=== PATIENT | male | born 1950 ===

== ENCOUNTER 2018-10-05 10:47 | Inpatient (IN) | payer MEDICAID ==
[2018-10-05] MEDS ORDERED: Sodium Chloride 0.9% 1,000 ML IV STA (11:40)
--- NOTE | 2018-10-05 12:29 | ED PDOC ---
HPI: Abdomen Time Seen by Provider: 10/05/18 11:13 Chief Complaint (Nursing): Abdominal Pain Chief Complaint (Provider): Abdominal Pain History Per: Patient, Balance Truer (Jose Workman) History/Exam Limitations: clinical condition Associated Symptoms: Vomiting Additional History Per: Longterm Additional Complaint(s): 68 year old male with a past medical history of diabetes, HTN, and hypercholesterolemia, who presents to the emergency department after being sent [facility] for hematem[facility]. Patient is shown to be A&O x1 and is here also complaining of lower abdominal pain. PMD: no provider Past Medical History Reviewed: Historical Data, Nursing Documentation, Vital Signs Vital Signs: Last Vital Signs Temp 97.9 F 10/05/18 10:53 Pulse 106 H 10/05/18 10:53 Resp 18 10/05/18 10:53 BP 143/89 10/05/18 10:53 Pulse Ox 98 10/05/18 10:57 - Medical History PMH: Diabetes, HTN, Hypercholesterolemia Denies: Deep Vein Thrombosis, Chronic Kidney Disease - Surgical History Surgical History: Denies: Pacemaker - Family History Family History: States: Unknown Family Hx - Home Medications Home Medications: Ambulatory Orders Medication Instructions Recorded Digoxin 0.125 mg PO DAILY #30 tab 09/22/18 Lisinopril [Zestril] 20 mg PO DAILY #30 tab 09/22/18 Metoprolol Tartrate [Lopressor] 100 mg PO Q12 #60 tab 09/22/18 Pantoprazole [Protonix EC Tab] 40 mg PO DAILY #30 ect 09/22/18 metFORMIN [glucOPHAGE] 500 mg PO DAILYWM #30 tab 09/22/18 Acetaminophen [Tylenol 325mg tab] 650 mg PO Q4 PRN 10/05/18 Acetaminophen [Tylenol 325mg tab] 650 mg PO Q4 PRN 10/05/18 Atorvastatin [Lipitor] 20 mg PO HS 10/05/18 Baclofen [Lioresal] 5 mg PO Q8 10/05/18 Divalproex [Depakote DR TAB] 125 mg PO Q8 10/05/18 Ibuprofen [Motrin Tab] 600 mg PO Q8 PRN 10/05/18 Lactulose [Generlac] 30 ml PO QPM 10/05/18 Magnesium Hydroxide [Milk Of 30 ml PO DAILY PRN 10/05/18 Magnesia] Meloxicam [Mobic] 7.5 mg PO DAILY 10/05/18 - Allergies Allergies/Adverse Reactions: Allergies Allergy/AdvReac Type Severity Reaction Status Date / Time Unobtainable Allergy Verified 04/03/18 17:10 Review of Systems ROS Statement: Except As Marked, All Systems Reviewed And Found Negative Gastrointestinal: Positive for: Abdominal Pain, Other (hematemesis ) Physical Exam - Reviewed Nursing Documentation Reviewed: Yes Vital Signs Reviewed: Yes - Physical Exam Appears: Positive for: Non-toxic, No Acute Distress Head Exam: Positive for: ATRAUMATIC, NORMOCEPHALIC Skin: Positive for: Normal Color, Warm, Dry Eye Exam: Positive for: Normal appearance, EOMI, PERRL ENT: Positive for: Normal ENT Inspection Neck: Positive for: Normal, Painless ROM, Supple Cardiovascular/Chest: Positive for: Regular Rate, Rhythm. Negative for: Murmur Respiratory: Positive for: Normal Breath Sounds. Negative for: Respiratory Distress Gastrointestinal/Abdominal: Positive for: Normal Exam, Soft. Negative for: Tenderness Back: Positive for: Normal Inspection. Negative for: L CVA Tenderness, R CVA Tenderness, Vertebral Tenderness Extremity: Positive for: Other (left upper extremity is contracted ) Neurologic/Psych: Positive for: Alert, Oriented - Laboratory Results Result Diagrams: 10/05/18 13:00 10/05/18 13:00 - ECG Interpretation Of ECG: ST @ 107, TWI I, aVL (new compared to 04/03/18). O2 Sat by Pulse Oximetry: 98 (RA) Pulse Ox Interpretation: Normal Medical Decision Making Medical Decision Makin Impression: upper GI bleed Plan: --Type and screen --Ekg --Cmp --Urine dipstick --Cbc with differential --PTT --Urinalysis --Chest xray --Sodium chloride 1,000 ml --Zofran inj 4 mg IV --Protonix inj 40 mg IVP 1236 Chest xray FINDINGS: LUNGS: No evidence of focal infiltrate or consolidation in the lungs. PLEURA: No significant pleural effusion identified, no pneumothorax apparent. CARDIOVASCULAR: No aortic atherosclerotic calcification present. Normal cardiac size. No pulmonary vascular congestion. OSSEOUS STRUCTURES: No significant abnormalities. VISUALIZED UPPER ABDOMEN: Normal. OTHER FINDINGS: None. IMPRESSION: No evidence of focal consolidation or infiltrates in the lungs. Scribe Attestation: Documented by Richardson Segura, acting as a scribe for Rafia Em MD. Provider Scribe Attestation: All medical record entries made by the Scribe were at my direction and personally dictated by me. I have reviewed the chart and agree that the record accurately reflects my personal performance of the history, physical exam, medical decision making, and the department course for this patient. I have also personally directed, reviewed, and agree with the discharge instructions and disposition. Disposition - Disposition Forms: [employer] ([place])
--- NOTE | 2018-10-05 12:39 | RAD ---
Date of service: 10/05/2018 HISTORY: GIB COMPARISON: Comparison is made with 07/28/2018 FINDINGS: LUNGS: No evidence of focal infiltrate or consolidation in the lungs. PLEURA: No significant pleural effusion identified, no pneumothorax apparent. CARDIOVASCULAR: No aortic atherosclerotic calcification present. Normal cardiac size. No pulmonary vascular congestion. OSSEOUS STRUCTURES: No significant abnormalities. VISUALIZED UPPER ABDOMEN: Normal. OTHER FINDINGS: None. IMPRESSION: No evidence of focal consolidation or infiltrates in the lungs.
--- NOTE | 2018-10-05 12:40 | CARD ---
APPROVED REPORT Date of service: 10/05/2018 EKG Measurement Heart [id number] <Conclusion> Sinus tachycardia Left axis deviation Inferior infarct, age undetermined ST & T wave abnormality, consider lateral ischemia Abnormal ECG
[2018-10-05 13:18] LABS: BASO # 0.1 K/uL (0.0-0.2); BASO % 0.5 % (0.0-2.0); EOS % 0.1 % (0.0-4.0); HEMOGLOBIN 12.5 g/dL (12.0-18.0); LYMPH # 1.9 K/uL (1.0-4.3); MEAN CELL VOLUME 89.1 fl (80.0-94.0); MEAN CORPUSCULAR HGB CONC 32.6 g/dL (33.0-37.0); MEAN PLATELET VOLUME 8.7 fl (7.2-11.7); MONO # 0.6 K/uL (0.0-0.8); MONO % 3.8 % (0.0-10.0); NEUT % 82.6 % (50.0-75.0); NRBC % 0.1 % (0.0-0.0); RBC 4.3 Mil/uL (4.40-5.90); RED CELL DISTRIBUTION WIDTH 15.5 % (11.5-14.5); WHITE BLOOD COUNT 14.5 K/uL (4.8-10.8)
[2018-10-05 13:31] LABS: ALBUMIN 3.9 g/dL (3.5-5.0); ALT/SGPT 21 U/L (21-72); AST/SGOT 31 U/L (17-59); BLOOD UREA NITROGEN 28 mg/dl (9-20); CALCIUM 9.8 mg/dL (8.4-10.2); GFR NON-AFRICAN AMERICAN > 60
[2018-10-05] MEDS ORDERED: Iohexol 240 (50 ml) PO ONE (16:55)
[2018-10-05] MEDS ORDERED: Iohexol 240 (50 ml) ONE (17:15)
--- NOTE | 2018-10-05 18:40 | RAD ---
Date of service: 10/05/2018 HISTORY: UGIB COMPARISON: None available. FINDINGS: BOWEL: Constipation without fecal impaction or obstruction. BONES: Normal. OTHER FINDINGS: None. IMPRESSION: No acute findings related to/ accounting for the clinical presentation. No visible free air.
[2018-10-05] MEDS ORDERED: Magnesium Hydroxide Susp 30 ml UD PO PRN (23:58)
[2018-10-06] MEDS: Divalproex 125 mg DR (BID formulation) PO SCH ×3 (01:53→16:45)
--- NOTE | 2018-10-06 06:57 | CON ---
DATE: 10/05/2018 REFERRING DOCTOR: Kashmir Yates MD REASON FOR CONSULTATION: hematemesis. HISTORY OF PRESENT ILLNESS: This is a 68-year-old male with diabetes, hypertension, hypercholesterolemia, brought in for episode of hematemesis . He is a poor historian and has some discomfort upon my exam, but otherwise I can get history. PAST MEDICAL HISTORY: As per chart. PAST SURGICAL HISTORY: As above. MEDICATIONS: Reviewed. REVIEW OF SYSTEMS: All other systems have been obtained. PHYSICAL EXAMINATION: VITAL SIGNS: Here in the hospital are grossly unremarkable. GENERAL: A pleasant elderly appearing male, lying in bed comfortably, in no apparent distress. HEENT: Head, normocephalic and atraumatic. Eyes, pupils are equally reactive to light bilaterally. No conjunctival pallor or icterus. NECK: Supple. Normal range of motion. No lymphadenopathy appreciated. LUNGS: Coarse breath sounds bilaterally. HEART: S1 and S2. Regular rate and rhythm. No S3. ABDOMEN: Soft, distended. Bowel sounds are present. Some discomfort. No rebound. No guarding. RECTAL: Deferred. EXTREMITIES: Pulses felt bilaterally. SKIN: Warm, dry, and intact. NEUROLOGIC: Alert and oriented x1 to 2. LABORATORY DATA: Labs and radiology have been reviewed. WBC of 14.5, hemoglobin of 12.5, hematocrit 38.3, and platelet count is . LFTs are normal. ASSESSMENT AND PLAN: This is a 68-year-old male with hematemesis, gastrointestinal bleeding. We will plan for CAT scan once able to tolerate. We will follow up the patient with you. Thank you for the consult. Ghassan Diallo MD/ PhD cc: Kashmir Yates MD
--- NOTE | 2018-10-06 08:33 | CP.PCM.HP ---
<Tenisha Ortiz - Last Filed: 10/06/18 08:55> History of Present Illness - History of Present Illness History of Present Illness: HPI: 68 YO Male with PMHx of DM2, CVA, HTN and HLD presented to [facility] ED [facility]. Pt was send to ED after patient was found to have "bloody emesis" additionally in the ED patient endorsed vague abdominal pain. On last admission to [facility], pt also was noted to have UGI bleed, unknown source resolved. This AM, pt no longer has any abdominal pain and no more episodes of hematemesis since admission. PMHx: DM2, CVA, HTN and HLD SurgHx: catarect surgery SHx: denies ETOH, smoking and illicit drug use FHx: noncontrubitary Allergies: NKDA Present on Admission - Present on Admission Any Indicators Present on Admission: No Review of Systems - Cardiovascular Cardiovascular: absent: Chest Pain, Dyspnea - Respiratory Respiratory: absent: Cough, Dyspnea - Gastrointestinal Gastrointestinal: Hematemesis. absent: Abdominal Pain, Cramping, Diarrhea Past Patient History - Past Medical History & Family History Past Medical History?: Yes - Past Social History Smoking Status: Never Smoked Alcohol: None Drugs: Denies Home Situation {Lives}: Group Home - CARDIAC Hx Cardiac Disorders: Yes Hx Hypercholesterolemia: Yes - PULMONARY Hx Respiratory Disorders: Yes Hx Pneumonia: Yes - NEUROLOGICAL Hx Neurological Disorder: Yes - HEENT Hx HEENT Problems: Yes Other/Comment: surgical procedure on left eye some years ago - RENAL Hx Chronic Kidney Disease: No - ENDOCRINE/METABOLIC Hx Endocrine Disorders: Yes Hx Diabetes Mellitus Type 2: Yes - HEMATOLOGICAL/ONCOLOGICAL Hx Blood Disorders: No Hx Cancer: No - INTEGUMENTARY Hx Dermatological Problems: No - MUSCULOSKELETAL/RHEUMATOLOGICAL Hx Musculoskeletal Disorders: Yes Hx Falls: Yes - GASTROINTESTINAL Hx Gastrointestinal Disorders: Yes Hx Bowel Surgery: No Hx Gastroesophageal Reflux: Yes - GENITOURINARY/GYNECOLOGICAL Hx Genitourinary Disorders: No - PSYCHIATRIC Hx Psychophysiologic Disorder: No Hx Substance Use: No - SURGICAL HISTORY Hx Surgeries: Yes (L eye) Hx Mastectomy: No - ANESTHESIA Hx Anesthesia: Yes Hx Anesthesia Reactions: No Meds Allergies/Adverse Reactions: Allergies Allergy/AdvReac Type Severity Reaction Status Date / Time Unobtainable Allergy Verified 04/03/18 17:10 Physical Exam - Constitutional Appears: No Acute Distress - Head Exam Head Exam: NORMAL INSPECTION - ENT Exam ENT Exam: Mucous Membranes Moist - Respiratory Exam Respiratory Exam: Clear to Auscultation Bilateral, NORMAL BREATHING PATTERN. absent: Wheezes - Cardiovascular Exam Cardiovascular Exam: Tachycardia, Irregular Rhythm, +S1, +S2 - GI/Abdominal Exam GI & Abdominal Exam: Hyperactive Bowel Sounds, Soft. absent: Guarding, Tenderness Results - Vital Signs Recent Vital Signs: Last Vital Signs Temp 98.1 F 10/06/18 08:26 Pulse 103 H 10/06/18 08:26 Resp 18 10/06/18 08:26 BP 145/86 10/06/18 08:26 Pulse Ox 94 L 10/06/18 08:26 - Labs Result Diagrams: 10/05/18 13:00 10/05/18 13:00 Labs: Laboratory Results - last 24 hr 10/05/18 10/05/18 10/05/18 13:00 13:00 13:00 WBC 14.5 H D RBC 4.30 L Hgb 12.5 Hct 38.3 MCV 89.1 D MCH 29.0 MCHC 32.6 L RDW 15.5 H Plt Count 267 MPV 8.7 Neut % (Auto) 82.6 H Lymph % (Auto) 13.0 L Phillips % (Auto) 3.8 Eos % (Auto) 0.1 Baso % (Auto) 0.5 Neut # (Auto) 12.0 H Lymph # (Auto) 1.9 Phillips # (Auto) 0.6 Eos # (Auto) 0.0 Baso # (Auto) 0.1 APTT 30.4 Sodium Potassium Chloride Carbon Dioxide Anion Gap BUN Creatinine Est GFR ( Amer) Est GFR (Non-Af Amer) POC Glucose (mg/dL) Random Glucose Calcium Total Bilirubin AST ALT Alkaline Phosphatase Troponin I Total Protein Albumin Globulin Albumin/Globulin Ratio Blood Type O POSITIVE Antibody Screen Negative BBK History Checked Patient has bt 10/05/18 10/05/18 10/06/18 13:00 22:16 06:20 WBC RBC Hgb Hct MCV MCH MCHC RDW Plt Count MPV Neut % (Auto) Lymph % (Auto) Phillips % (Auto) Eos % (Auto) Baso % (Auto) Neut # (Auto) Lymph # (Auto) Phillips # (Auto) Eos # (Auto) Baso # (Auto) APTT Sodium 131 L Potassium 5.0 Chloride 93 L Carbon Dioxide 25 Anion Gap 18 BUN 28 H Creatinine 0.5 L Est GFR ( Amer) > 60 Est GFR (Non-Af Amer) > 60 POC Glucose (mg/dL) 153 H 136 H Random Glucose 220 H Calcium 9.8 Total Bilirubin 0.5 AST 31 ALT 21 D Alkaline Phosphatase 85 Troponin I < 0.0120 Total Protein 7.9 Albumin 3.9 Globulin 4.0 H Albumin/Globulin Ratio 1.0 Blood Type Antibody Screen BBK History Checked Assessment & Plan - Assessment and Plan (Free Text) Assessment: Assessment/Plan: 68 YO Male with PMHx of DM2, CVA, HTN and HLD is admitted for UGIB. Upper GI bleed -acute -Not currently actively bleeding -c/w protonix -GI consulted: CT abd when tolerated -follow up FOBT -h/t currently stable ST changed on EKG -acute -Echo 03/2018 appreciated, no ventricular dysfunction, EF 55-60% -cardiology consulted; follow up recs -trop x 1 neg -echo pending Atrial Fib with RVR -HR uncontrolled -continue Digoxin and Metoprolol -follow up cardiology recs Leukocystosis -likely 2/2 to hemoconcentration -no known source of infection, VS stable -follow up AM labs Hypertension/HLD -chronic and stable -continue Lisinopril and Metoprolol NIDDM -chronic and controlled -hbA1c 6.4 (07/2018) -c/w Accucheks, Levemir at night and Metformin Plan as ordered <Kashmir Yates - Last Filed: 10/08/18 11:52> Results - Vital Signs Recent Vital Signs: Last Vital Signs Temp 98.0 F 10/08/18 08:43 Pulse 83 10/08/18 09:39 Resp 20 10/08/18 08:43 BP 126/81 10/08/18 09:39 Pulse Ox 99 10/08/18 08:43 - Labs Result Diagrams: 10/08/18 05:35 10/08/18 05:35 Labs: Laboratory Results - last 24 hr 10/07/18 10/07/18 10/08/18 16:26 22:24 05:35 WBC 8.7 RBC 3.63 L Hgb 10.6 L Hct 32.2 L MCV 88.7 MCH 29.2 MCHC 32.9 L RDW 15.2 H Plt Count 237 MPV 8.5 Neut % (Auto) 65.6 Lymph % (Auto) 21.7 Phillips % (Auto) 11.0 H Eos % (Auto) 1.0 Baso % (Auto) 0.7 Neut # (Auto) 5.7 Lymph # (Auto) 1.9 Phillips # (Auto) 1.0 H Eos # (Auto) 0.1 Baso # (Auto) 0.1 Sodium Potassium Chloride Carbon Dioxide Anion Gap BUN Creatinine Est GFR ( Amer) Est GFR (Non-Af Amer) POC Glucose (mg/dL) 159 H 193 H Random Glucose Calcium Phosphorus Magnesium Total Bilirubin AST ALT Alkaline Phosphatase Total Protein Albumin Globulin Albumin/Globulin Ratio 10/08/18 10/08/18 10/08/18 05:35 05:37 11:01 WBC RBC Hgb Hct MCV MCH MCHC RDW Plt Count MPV Neut % (Auto) Lymph % (Auto) Phillips % (Auto) Eos % (Auto) Baso % (Auto) Neut # (Auto) Lymph # (Auto) Phillips # (Auto) Eos # (Auto) Baso # (Auto) Sodium 134 Potassium 3.8 Chloride 102 Carbon Dioxide 21 L Anion Gap 15 BUN 13 Creatinine 0.4 L Est GFR ( Amer) > 60 Est GFR (Non-Af Amer) > 60 POC Glucose (mg/dL) 205 H 219 H Random Glucose 209 H Calcium 8.8 Phosphorus 2.8 Magnesium 1.5 L Total Bilirubin 0.3 AST 25 ALT 27 Alkaline Phosphatase 69 Total Protein 6.8 Albumin 3.1 L Globulin 3.6 Albumin/Globulin Ratio 0.9 L Assessment & Plan - Assessment and Plan (Free Text) Assessment: Patient was personally seen and examined by me in rounds with residents. Available labs and diagnostic data reviewed. Case, Patient's condition and management plan discussed with residents in rounds. Agree with resident's progress note. Plan: As ordered.
[2018-10-06] MEDS: Digoxin 125 mcg (0.125 mg) Tab PO SCH (08:45)
[2018-10-06] MEDS: Pantoprazole 40 mg EC Tab PO SCH (08:45)
[2018-10-06 09:44] LABS: HEMOGLOBIN 11.3 g/dL (12.0-18.0); MEAN CELL VOLUME 89.1 fl (80.0-94.0); MEAN CORPUSCULAR HEMOGLOBIN 29.1 pg (27.0-31.0); MEAN CORPUSCULAR HGB CONC 32.6 g/dL (33.0-37.0); RBC 3.9 Mil/uL (4.40-5.90); RED CELL DISTRIBUTION WIDTH 15.4 % (11.5-14.5); WHITE BLOOD COUNT 13.2 K/uL (4.8-10.8)
[2018-10-06 09:57] LABS: ALB/GLOB RATIO 0.9 (1.0-2.1); ALBUMIN 3.4 g/dL (3.5-5.0); ALT/SGPT 23 U/L (21-72); AST/SGOT 22 U/L (17-59); BLOOD UREA NITROGEN 21 mg/dl (9-20); CALCIUM 9.1 mg/dL (8.4-10.2); GFR NON-AFRICAN AMERICAN > 60
[2018-10-06] MEDS ORDERED: Iohexol 240 (50 ml) PO ONE (11:31)
[2018-10-06] MEDS: Potassium Ch 20mEq in D5-1/2NS 1,000 ML IV SCH ×2 (11:35→21:13)
[2018-10-06] MEDS ORDERED: Metoprolol 1 mg/ml Inj IVP SCH (17:00)
[2018-10-06] MEDS: Digoxin 500 mcg/2ml (0.5 mg/2ml) Inj IVP SCH (17:16)
--- NOTE | 2018-10-06 18:21 | CARD ---
APPROVED REPORT Date of service: 10/06/2018 EXAM: Two-dimensional and M-mode echocardiogram with Doppler and color Doppler. Other Information Quality : FairRhythm : Atrial Fibrillation Technically limited study due to Very poor echo window. INDICATION Atrial Fibrillation 2D DIMENSIONS IVSd1.10 (0.7-1.1cm)LVDd3.93 (3.9-5.9cm) PWd1.17 (0.7-1.1cm)IVSs1.09 (0.8-1.2cm) LVDs3.98 (2.5-4.0cm)FS (%) 1.3 % PWs0.93 (0.8-1.2cm) Mitral Valve E/A ratio0.0 TDI E/Lateral E'0.0E/Medial E'0.0 LEFT VENTRICLE The left ventricle is normal size. There is normal left ventricular wall thickness. The left ventricular systolic function is moderately reduced. Cannot estimate EF% due to poor echo windows. There is global hypokinesis of the left ventricle. The left ventricular diastolic function cannot be assessed due to underlying atrial fibrillation. RIGHT VENTRICLE The right ventricle is normal size. The right ventricular systolic function is normal. ATRIA The left atrium size is normal. The right atrium size is normal. Not well visualized AORTIC VALVE The aortic valve is not well visualized No aortic regurgitation is present. There is no aortic valvular stenosis. MITRAL VALVE The mitral valve is normal in structure. There is no mitral valve stenosis. There is no mitral valve regurgitation noted. TRICUSPID VALVE The tricuspid valve is normal in structure. There is no tricuspid valve regurgitation noted. PULMONIC VALVE The pulmonary valve is not well visualized There is no pulmonic valvular regurgitation. GREAT VESSELS The aortic root is normal in size. The IVC is not visualized PERICARDIAL EFFUSION There is no pericardial effusion. <Conclusion> Technically difficult study and patient was not co-operative for contrast study to delineate endocardium. The left ventricular systolic function is moderately reduced. There is global hypokinesis of the left ventricle. Cannot estimate EF% due to poor echo windows. The left ventricular diastolic function cannot be assessed due to underlying atrial fibrillation. The left atrium size is normal. There is no tricuspid valve regurgitation noted. The IVC is not visualized Consider repeating echo when heart rate is better controlled and patient is co-operative.
--- NOTE | 2018-10-07 00:11 | CP.PCM.CON ---
History of Present Illness - History of Present Illness History of Present Illness: Consultation for evaluation of abnormal EKG and ? afib HPI: 68M w/ PMH DM, HTN, CVA, Dyslipidemia Recently discharged on 09/22 after prolonged admission starting in March for severe R frontal lobe CVA during which patient remained under care of hospital due to social/legal reasons. During prior course patient developed GI bleed. Patient presented to [facility] ED on 10/05 from alf w/ new onset episode of hemetemsis; EKG upon admission - patient was noted to have ST segment changes as well as possible atrial fibrillation. Patient tachycardic and hypertensive following admission. Upon evaluation patient is examined w/ privacy specialist; patient is found to be AAOx1; no meaningful history provided by patient upon evaluation. At time of evaluation patient denies CP, SOB, Palpitations, Lightheadedness, Abd Pain, N/v/d/c. Prior Echo 03/2018 - EF 55-60%; NSR; Grade 1 abnormal relxation patter - Mild AR, Moderate MR, Mild TR Echo 10/06/18 - Poor study overall; EF unable to be assessed, global hypokinesis, possible underlying afib. Per Chart Review: PMHx: DM2, CVA, HTN and HLD SurgHx: catarect surgery SHx: denies ETOH, smoking and illicit drug use FHx: noncontrubitary Allergies: NKDA Review of Systems - Review of Systems Systems not reviewed;Unavailable: Acuity of Condition - Constitutional Constitutional: As Per HPI - EENT Eyes: As Per HPI Ears: As Per HPI Nose/Mouth/Throat: As Per HPI - Cardiovascular Cardiovascular: As Per HPI - Respiratory Respiratory: As Per HPI - Gastrointestinal Gastrointestinal: As Per HPI - Genitourinary Genitourinary: As Per HPI - Reproductive: Male Reproductive:Male: As Per HPI - Musculoskeletal Musculoskeletal: As Per HPI - Integumentary Integumentary: As Per HPI - Neurological Neurological: As Per HPI - Psychiatric Psychiatric: As Per HPI - Endocrine Endocrine: As Per HPI - Hematologic/Lymphatic Hematologic: As Per HPI Past Patient History - Past Medical History & Family History Past Medical History?: Yes - Past Social History Smoking Status: Never Smoked Alcohol: None Drugs: Denies Home Situation {Lives}: Half-Way - CARDIAC Hx Cardiac Disorders: Yes Hx Hypercholesterolemia: Yes - PULMONARY Hx Respiratory Disorders: Yes Hx Pneumonia: Yes - NEUROLOGICAL Hx Neurological Disorder: Yes - HEENT Hx HEENT Problems: Yes Other/Comment: surgical procedure on left eye some years ago - RENAL Hx Chronic Kidney Disease: No - ENDOCRINE/METABOLIC Hx Endocrine Disorders: Yes Hx Diabetes Mellitus Type 2: Yes - HEMATOLOGICAL/ONCOLOGICAL Hx Blood Disorders: No Hx Cancer: No - INTEGUMENTARY Hx Dermatological Problems: No - MUSCULOSKELETAL/RHEUMATOLOGICAL Hx Musculoskeletal Disorders: Yes Hx Falls: Yes - GASTROINTESTINAL Hx Gastrointestinal Disorders: Yes Hx Bowel Surgery: No Hx Gastroesophageal Reflux: Yes - GENITOURINARY/GYNECOLOGICAL Hx Genitourinary Disorders: No - PSYCHIATRIC Hx Psychophysiologic Disorder: No Hx Substance Use: No - SURGICAL HISTORY Hx Surgeries: Yes (L eye) Hx Mastectomy: No - ANESTHESIA Hx Anesthesia: Yes Hx Anesthesia Reactions: No Meds Allergies/Adverse Reactions: Allergies Allergy/AdvReac Type Severity Reaction Status Date / Time Unobtainable Allergy Verified 04/03/18 17:10 - Medications Medications: Current Medications Acetaminophen (Tylenol 325mg Tab) 650 mg PO Q4 PRN PRN Reason: Pain, Mild (1-3) Acetaminophen (Tylenol 325mg Tab) 650 mg PO Q4 PRN PRN Reason: Temp >100 Atorvastatin Calcium (Lipitor) 20 mg PO HS [facility] Last Admin: 10/06/18 21:13 Dose: Not Given Baclofen (Lioresal) 5 mg PO Q8 [facility] Last Admin: 10/06/18 16:44 Dose: Not Given Digoxin (Digoxin) 0.125 mg PO DAILY [facility] Last Admin: 10/06/18 08:45 Dose: Not Given Digoxin (Lanoxin) 0.25 mg IVP DAILY [facility] Last Admin: 10/06/18 17:16 Dose: 0.25 mg Divalproex Sodium (Depakote Dr(*Bid*)) 125 mg PO Q8 [facility] Last Admin: 10/06/18 16:45 Dose: Not Given Enoxaparin Sodium (Lovenox) 40 mg SC DAILY [facility]; Protocol Potassium Chloride/Dextrose/Sod Cl (Potassium Chl 20 Meq In D5-1/2ns) 1,000 mls @ 90 mls/hr IV .Q11H7M [facility] Stop: 10/07/18 08:31 Last Admin: 10/06/18 21:13 Dose: 90 mls/hr Ibuprofen (Motrin Tab) 600 mg PO Q8 PRN PRN Reason: Pain, moderate (4-7) Lactulose (Enulose) 20 gm PO DAILY PRN PRN Reason: Constipation Lisinopril (Zestril) 20 mg PO DAILY [facility] Last Admin: 10/06/18 08:45 Dose: Not Given Magnesium Hydroxide (Milk Of Magnesia) 30 ml PO DAILY PRN PRN Reason: No bowel movement x 3 days Metformin HCl (Glucophage) 500 mg PO DAILYWM [facility] Last Admin: 10/06/18 08:45 Dose: Not Given Metoprolol Tartrate (Lopressor) 100 mg PO Q12 [facility] Last Admin: 10/06/18 08:45 Dose: Not Given Metoprolol Tartrate (Lopressor) 5 mg IVP BID [facility] Last Admin: 10/06/18 17:20 Dose: 5 mg Naproxen (Naprosyn Tab) 250 mg PO BID [facility] Pantoprazole Sodium (Protonix Ec Tab) 40 mg PO DAILY [facility] Last Admin: 10/06/18 08:45 Dose: Not Given Physical Exam - Constitutional Appears: Well - Head Exam Head Exam: ATRAUMATIC, NORMAL INSPECTION, NORMOCEPHALIC - Eye Exam Eye Exam: EOMI, Normal appearance, PERRL Pupil Exam: NORMAL ACCOMODATION, PERRL - ENT Exam ENT Exam: Mucous Membranes Moist, Normal Exam - Neck Exam Neck exam: Positive for: Normal Inspection - Respiratory Exam Respiratory Exam: Clear to Auscultation Bilateral, NORMAL BREATHING PATTERN - Cardiovascular Exam Cardiovascular Exam: REGULAR RHYTHM, RRR, +S1, +S2, Systolic Murmur - GI/Abdominal Exam GI & Abdominal Exam: Normal Bowel Sounds, Soft. absent: Tenderness - Extremities Exam Extremities exam: Positive for: normal inspection - Back Exam Back exam: NORMAL INSPECTION - Neurological Exam Neurological exam: Alert, CN II-XII Intact, Normal Gait, Oriented x3, Reflexes Normal - Psychiatric Exam Psychiatric exam: Normal Affect, Normal Mood - Skin Skin Exam: Dry, Intact, Normal Color, Warm Results - Vital Signs Recent Vital Signs: Last Vital Signs Temp 98 F 10/06/18 21:00 Pulse 116 H 10/06/18 21:00 Resp 18 10/06/18 21:00 BP 139/81 10/06/18 21:00 Pulse Ox 96 10/06/18 21:00 - Labs Result Diagrams: 10/07/18 04:40 10/07/18 04:40 Labs: Laboratory Results - last 24 hr 10/05/18 10/06/18 10/06/18 22:16 06:20 09:00 WBC RBC Hgb Hct MCV MCH MCHC RDW Plt Count Sodium Potassium Chloride Carbon Dioxide Anion Gap BUN Creatinine Est GFR ( Amer) Est GFR (Non-Af Amer) POC Glucose (mg/dL) 153 H 136 H Random Glucose Calcium Total Bilirubin AST ALT Alkaline Phosphatase Troponin I 0.0280 Total Protein Albumin Globulin Albumin/Globulin Ratio 10/06/18 10/06/18 10/06/18 09:35 09:35 11:19 WBC 13.2 H RBC 3.90 L Hgb 11.3 L Hct 34.7 L MCV 89.1 MCH 29.1 MCHC 32.6 L RDW 15.4 H Plt Count 254 Sodium 137 Potassium 4.3 Chloride 100 Carbon Dioxide 22 Anion Gap 19 BUN 21 H Creatinine 0.5 L Est GFR ( Amer) > 60 Est GFR (Non-Af Amer) > 60 POC Glucose (mg/dL) 131 H Random Glucose 146 H Calcium 9.1 Total Bilirubin 0.4 AST 22 ALT 23 Alkaline Phosphatase 73 Troponin I Total Protein 7.1 Albumin 3.4 L Globulin 3.7 Albumin/Globulin Ratio 0.9 L 10/06/18 10/06/18 10/06/18 16:07 20:49 21:41 WBC RBC Hgb Hct MCV MCH MCHC RDW Plt Count Sodium Potassium Chloride Carbon Dioxide Anion Gap BUN Creatinine Est GFR ( Amer) Est GFR (Non-Af Amer) POC Glucose (mg/dL) 202 H 206 H Random Glucose Calcium Total Bilirubin AST ALT Alkaline Phosphatase Troponin I 0.0420 Total Protein Albumin Globulin Albumin/Globulin Ratio Assessment & Plan (1) Abnormal EKG Assessment and Plan: ? ST changes in lateral wall because of hx of CVA , high risk for underlying CAD plan for stress test echo -poor images to comment on WMA asa, bb, statins Status: Acute (2) Afib Assessment and Plan: none documented on EKG and on telemetry cont home dose of metoprolol 100mg bid Status: Acute (3) Anemia Status: Acute (4) CVA (cerebral vascular accident) Status: Chronic (5) DM type 2 (diabetes mellitus, type 2) Status: Chronic (6) HTN (hypertension) Assessment and Plan: cont lisinopril, metoprolol Status: Chronic
--- NOTE | 2018-10-07 00:51 | CP.PCM.PN ---
Subjective - Date & Time of Evaluation Date of Evaluation: 10/07/18 Time of Evaluation: 02:50 - Subjective Subjective: Jeffrey Hester DO PGY1 - Internal medicine Mechanical Facilities Technician - Cardiology Note for Dr. Madrigal Patient was seen and examined at bedside this morning Patient was tachycardic throughout the day today. Required Objective - Vital Signs/Intake and Output Vital Signs (last 24 hours): Temp Pulse Resp BP Pulse Ox 98 F 116 H 18 139/81 96 10/06/18 21:00 10/06/18 21:00 10/06/18 21:00 10/06/18 21:00 10/06/18 21:00 - Medications Medications: Current Medications Acetaminophen (Tylenol 325mg Tab) 650 mg PO Q4 PRN PRN Reason: Pain, Mild (1-3) Acetaminophen (Tylenol 325mg Tab) 650 mg PO Q4 PRN PRN Reason: Temp >100 Atorvastatin Calcium (Lipitor) 20 mg PO HS [facility] Last Admin: 10/06/18 21:13 Dose: Not Given Baclofen (Lioresal) 5 mg PO Q8 [facility] Last Admin: 10/06/18 16:44 Dose: Not Given Digoxin (Digoxin) 0.125 mg PO DAILY [facility] Last Admin: 10/06/18 08:45 Dose: Not Given Digoxin (Lanoxin) 0.25 mg IVP DAILY [facility] Last Admin: 10/06/18 17:16 Dose: 0.25 mg Divalproex Sodium (Depakote Dr(*Bid*)) 125 mg PO Q8 [facility] Last Admin: 10/06/18 16:45 Dose: Not Given Enoxaparin Sodium (Lovenox) 40 mg SC DAILY [facility]; Protocol Potassium Chloride/Dextrose/Sod Cl (Potassium Chl 20 Meq In D5-1/2ns) 1,000 mls @ 90 mls/hr IV .Q11H7M [facility] Stop: 10/07/18 08:31 Last Admin: 10/06/18 21:13 Dose: 90 mls/hr Ibuprofen (Motrin Tab) 600 mg PO Q8 PRN PRN Reason: Pain, moderate (4-7) Lactulose (Enulose) 20 gm PO DAILY PRN PRN Reason: Constipation Lisinopril (Zestril) 20 mg PO DAILY [facility] Last Admin: 10/06/18 08:45 Dose: Not Given Magnesium Hydroxide (Milk Of Magnesia) 30 ml PO DAILY PRN PRN Reason: No bowel movement x 3 days Metformin HCl (Glucophage) 500 mg PO DAILYWM [facility] Last Admin: 10/06/18 08:45 Dose: Not Given Metoprolol Tartrate (Lopressor) 100 mg PO Q12 [facility] Last Admin: 10/06/18 08:45 Dose: Not Given Metoprolol Tartrate (Lopressor) 5 mg IVP BID [facility] Last Admin: 10/06/18 17:20 Dose: 5 mg Naproxen (Naprosyn Tab) 250 mg PO BID [facility] Pantoprazole Sodium (Protonix Ec Tab) 40 mg PO DAILY [facility] Last Admin: 10/06/18 08:45 Dose: Not Given - Labs Labs: 10/06/18 09:35 10/06/18 09:35 APTT 30.4 Seconds (25.6-37.1) 10/05/18 13:00 - Constitutional Appears: Chronically Ill, Other (Contracted) - Head Exam Head Exam: ATRAUMATIC, NORMOCEPHALIC - Eye Exam Additional comments: L pupil dilated non reactive R pupil reactive to light - Cardiovascular Exam Cardiovascular Exam: RRR, +S1, +S2 - GI/Abdominal Exam GI & Abdominal Exam: Soft. absent: Tenderness - Extremities Exam Additional comments: LE warm 1+ DP BL - Neurological Exam Neurological Exam: Alert, Awake Additional comments: LUE+LLE contracted - Psychiatric Exam Psychiatric exam: Normal Affect, Normal Mood - Skin Skin Exam: Dry, Intact, Normal Color, Warm Assessment and Plan (1) Afib Status: Suspected (2) HTN (hypertension) Status: Chronic (3) CVA (cerebral vascular accident) Status: Chronic (4) DM type 2 (diabetes mellitus, type 2) Status: Chronic - Assessment and Plan (Free Text) Plan: Patient unable to complete NST 2/2 contractures; V4/V5 w/ ST Depressions appreciated; No evidence of Afib on EKG or overnight telemetry Due to chronic contractures, NST evaluation is not feasible. Can continue to medically manage patient at this time. Evaluation w/ coronary catheterization is not warranted at this time due to asymptomatic presentation. Resuming Home PO: Digoxin 0.125 Toprol XL 100 QD Stopping IV: Lopressor Digoxin Start ASA81 QD Continue: Lipitor 20 HS Zestril 20 Daily Further reccs per Dr. Madrigal pending
[2018-10-07] MEDS: Divalproex 125 mg DR (BID formulation) PO SCH ×3 (00:54→22:13)
[2018-10-07 05:27] LABS: BASO % 0.5 % (0.0-2.0); EOS # 0.1 K/uL (0.0-0.7); EOS % 0.6 % (0.0-4.0); HEMOGLOBIN 10.9 g/dL (12.0-18.0); INR 1.2; LYMPH # 1.9 K/uL (1.0-4.3); MEAN CELL VOLUME 88.9 fl (80.0-94.0); MEAN CORPUSCULAR HEMOGLOBIN 29.1 pg (27.0-31.0); MEAN CORPUSCULAR HGB CONC 32.8 g/dL (33.0-37.0); MEAN PLATELET VOLUME 8.4 fl (7.2-11.7); MONO # 0.8 K/uL (0.0-0.8); MONO % 8.4 % (0.0-10.0); NEUT # 6.8 K/uL (1.8-7.0); NEUT % 70.5 % (50.0-75.0); PROTHROMBIN TIME 13.5 Seconds (9.8-13.1); RBC 3.73 Mil/uL (4.40-5.90); RED CELL DISTRIBUTION WIDTH 15.7 % (11.5-14.5); WHITE BLOOD COUNT 9.7 K/uL (4.8-10.8)
[2018-10-07 05:36] LABS: ALB/GLOB RATIO 0.9 (1.0-2.1); ALBUMIN 3.5 g/dL (3.5-5.0); ALT/SGPT 23 U/L (21-72); AST/SGOT 28 U/L (17-59); BLOOD UREA NITROGEN 18 mg/dl (9-20); CALCIUM 9.2 mg/dL (8.4-10.2); GFR NON-AFRICAN AMERICAN > 60
[2018-10-07] MEDS: Potassium Ch 20mEq in D5-1/2NS 1,000 ML IV SCH (06:51)
[2018-10-07] MEDS ORDERED: Potassium Ch 20mEq in D5-1/2NS 1,000 ML IV SCH ×2 (08:30→23:59)
[2018-10-07] MEDS ORDERED: Digoxin 500 mcg/2ml (0.5 mg/2ml) Inj IVP SCH ×2 (08:39→16:45)
--- NOTE | 2018-10-07 08:44 | CP.PCM.PN ---
<Tenisha Ortiz - Last Filed: 10/07/18 08:49> Subjective - Date & Time of Evaluation Date of Evaluation: 10/07/18 Time of Evaluation: 08:42 - Subjective Subjective: No acute overnight events. Pt refused PO contrast yesterday Pt seen and examined by bedside this AM. Pt states that he does not feel well, but does not elaborate when asked. Denies headache, chest pain, palpitations, abdominal pain, n/v, chills, and remains afebrile. Objective - Vital Signs/Intake and Output Vital Signs (last 24 hours): Temp Pulse Resp BP Pulse Ox 98 F 124 H 18 144/74 97 10/07/18 01:00 10/07/18 01:00 10/07/18 01:00 10/07/18 01:00 10/07/18 01:00 - Medications Medications: Current Medications Acetaminophen (Tylenol 325mg Tab) 650 mg PO Q4 PRN PRN Reason: Pain, Mild (1-3) Acetaminophen (Tylenol 325mg Tab) 650 mg PO Q4 PRN PRN Reason: Temp >100 Atorvastatin Calcium (Lipitor) 20 mg PO HS [facility] Last Admin: 10/06/18 21:13 Dose: Not Given Baclofen (Lioresal) 5 mg PO Q8 [facility] Last Admin: 10/07/18 00:54 Dose: Not Given Digoxin (Digoxin) 0.125 mg PO DAILY [facility] Last Admin: 10/06/18 08:45 Dose: Not Given Digoxin (Lanoxin) 0.25 mg IVP DAILY [facility] Stop: 10/07/18 09:00 Last Admin: 10/06/18 17:16 Dose: 0.25 mg Digoxin (Lanoxin) 0.25 mg IVP DAILY [facility] Divalproex Sodium (Depakote Dr(*Bid*)) 125 mg PO Q8 [facility] Last Admin: 10/07/18 00:54 Dose: Not Given Enoxaparin Sodium (Lovenox) 40 mg SC DAILY [facility]; Protocol Potassium Chloride/Dextrose/Sod Cl (Potassium Chl 20 Meq In D5-1/2ns) 1,000 mls @ 90 mls/hr IV .Q11H7M [facility] Stop: 10/07/18 19:36 Ibuprofen (Motrin Tab) 600 mg PO Q8 PRN PRN Reason: Pain, moderate (4-7) Lactulose (Enulose) 20 gm PO DAILY PRN PRN Reason: Constipation Lisinopril (Zestril) 20 mg PO DAILY [facility] Last Admin: 10/06/18 08:45 Dose: Not Given Magnesium Hydroxide (Milk Of Magnesia) 30 ml PO DAILY PRN PRN Reason: No bowel movement x 3 days Metformin HCl (Glucophage) 500 mg PO DAILYWM [facility] Last Admin: 10/06/18 08:45 Dose: Not Given Metoprolol Tartrate (Lopressor) 100 mg PO Q12 [facility] Last Admin: 10/06/18 08:45 Dose: Not Given Metoprolol Tartrate (Lopressor) 5 mg IVP Q8 [facility] Naproxen (Naprosyn Tab) 250 mg PO BID [facility] Pantoprazole Sodium (Protonix Ec Tab) 40 mg PO DAILY [facility] Last Admin: 10/06/18 08:45 Dose: Not Given - Labs Labs: 10/07/18 04:40 10/07/18 04:40 PT 13.5 Seconds (9.8-13.1) H 10/07/18 04:40 INR 1.2 10/07/18 04:40 APTT 29.0 Seconds (25.6-37.1) 10/07/18 04:40 - Constitutional Appears: No Acute Distress - Head Exam Head Exam: NORMAL INSPECTION - Respiratory Exam Respiratory Exam: Clear to Ausculation Bilateral, NORMAL BREATHING PATTERN. absent: Wheezes - Cardiovascular Exam Cardiovascular Exam: REGULAR RHYTHM, +S1, +S2 - GI/Abdominal Exam GI & Abdominal Exam: Soft, Normal Bowel Sounds. absent: Tenderness - Neurological Exam Neurological Exam: Alert, Awake Assessment and Plan (1) Hematemesis Status: Acute (2) Afib Status: Suspected (3) DM type 2 (diabetes mellitus, type 2) Status: Chronic (4) HTN (hypertension) Status: Chronic (5) Anemia Status: Acute - Assessment and Plan (Free Text) Assessment: Assessment/Plan: 68 YO Male with PMHx of DM2, CVA, HTN and HLD is admitted for UGIB. Upper GI bleed -acute -Not currently actively bleeding -c/w protonix -GI consulted: CT abd when tolerated -follow up FOBT -h/t currently stable ST changed on EKG -acute, likely 2/2 to arrhythmia -Echo 03/2018 appreciated, no ventricular dysfunction, EF 55-60% -cardiology consulted; follow up recs -trop x 3 neg -echo 10/06 global hypokinesis, poor study Atrial Fib with RVR -HR uncontrolled -continue Digoxin, PO metropolol held -started IV lopressor Q8 for rate control -cardiology appreciated, npo at [place] for NST in AM Anemia -hb 12-->10 today -likely 2.2 to hematemesis -asymptomatic -continue to monitor for now Leukocystosis -resolved -likely 2/2 to hemoconcentration -no known source of infection, VS stable Hypertension/HLD -chronic and stable -continue Lisinopril and Metoprolol NIDDM -chronic and controlled -hbA1c 6.4 (07/2018) -c/w Accucheks, Levemir at night and Metformin Plan as ordered <Kashmir Yates - Last Filed: 10/08/18 11:49> Objective - Vital Signs/Intake and Output Vital Signs (last 24 hours): Temp Pulse Resp BP Pulse Ox 98.0 F 83 20 126/81 99 10/08/18 08:43 10/08/18 09:39 10/08/18 08:43 10/08/18 09:39 10/08/18 08:43 - Medications Medications: Current Medications Acetaminophen (Tylenol 325mg Tab) 650 mg PO Q4 PRN PRN Reason: Pain, Mild (1-3) Acetaminophen (Tylenol 325mg Tab) 650 mg PO Q4 PRN PRN Reason: Temp >100 Atorvastatin Calcium (Lipitor) 20 mg PO HS [facility] Last Admin: 10/07/18 22:13 Dose: 20 mg Baclofen (Lioresal) 5 mg PO Q8 [facility] Last Admin: 10/08/18 09:37 Dose: 5 mg Digoxin (Digoxin) 0.125 mg PO DAILY [facility] Last Admin: 10/08/18 09:35 Dose: 0.125 mg Divalproex Sodium (Depakote Dr(*Bid*)) 125 mg PO Q8 [facility] Last Admin: 10/08/18 09:35 Dose: 125 mg Enoxaparin Sodium (Lovenox) 40 mg SC DAILY [facility]; Protocol Last Admin: 10/08/18 09:38 Dose: 40 mg Potassium Chloride/Dextrose/Sod Cl (Potassium Chl 20 Meq In D5-1/2ns) 1,000 mls @ 90 mls/hr IV .Q11H7M [facility] Stop: 10/08/18 15:45 Last Admin: 10/07/18 00:00 Dose: 90 mls/hr Ibuprofen (Motrin Tab) 600 mg PO Q8 PRN PRN Reason: Pain, moderate (4-7) Lactulose (Enulose) 20 gm PO DAILY [facility] Last Admin: 10/08/18 09:36 Dose: 20 gm Lisinopril (Zestril) 20 mg PO DAILY [facility] Last Admin: 10/08/18 09:39 Dose: 20 mg Magnesium Hydroxide (Milk Of Magnesia) 30 ml PO DAILY PRN PRN Reason: No bowel movement x 3 days Metformin HCl (Glucophage) 500 mg PO DAILYWM [facility] Last Admin: 10/08/18 09:36 Dose: 500 mg Metoprolol Tartrate (Lopressor) 100 mg PO Q12 [facility] Last Admin: 10/08/18 09:37 Dose: 100 mg Naproxen (Naprosyn Tab) 250 mg PO BID [facility] Pantoprazole Sodium (Protonix Ec Tab) 40 mg PO DAILY [facility] Last Admin: 10/08/18 09:38 Dose: 40 mg - Labs Labs: 10/08/18 05:35 10/08/18 05:35 PT 13.5 Seconds (9.8-13.1) H 10/07/18 04:40 INR 1.2 10/07/18 04:40 APTT 29.0 Seconds (25.6-37.1) 10/07/18 04:40 Assessment and Plan - Assessment and Plan (Free Text) Assessment: Patient was personally seen and examined by me in rounds with residents. Available labs and diagnostic data reviewed. Case, Patient's condition and management plan discussed with residents in rounds. Agree with resident's progress note. Plan: As ordered.
[2018-10-07] MEDS: Metoprolol 1 mg/ml Inj IVP SCH ×3 (08:54→17:09)
[2018-10-07] MEDS: Enoxaparin 40 mg Syringe SC SCH (09:32)
[2018-10-07] MEDS: Pantoprazole 40 mg EC Tab PO SCH (09:33)
--- NOTE | 2018-10-07 11:07 | CARD ---
APPROVED REPORT Date of service: 10/07/2018 EKG Measurement Heart [id number] <Conclusion> Sinus tachycardia Left axis deviation Septal infarct, age undetermined Inferior infarct, age undetermined Nonspecific ST-T changes Abnormal ECG
[2018-10-07] MEDS: Digoxin 500 mcg/2ml (0.5 mg/2ml) Inj IVP SCH (11:59)
[2018-10-08] MEDS: Divalproex 125 mg DR (BID formulation) PO SCH ×3 (01:33→09:35)
[2018-10-08 06:16] LABS: BASO # 0.1 K/uL (0.0-0.2); BASO % 0.7 % (0.0-2.0); EOS # 0.1 K/uL (0.0-0.7); HEMOGLOBIN 10.6 g/dL (12.0-18.0); LYMPH # 1.9 K/uL (1.0-4.3); LYMPH % 21.7 % (20.0-40.0); MEAN CELL VOLUME 88.7 fl (80.0-94.0); MEAN CORPUSCULAR HEMOGLOBIN 29.2 pg (27.0-31.0); MEAN CORPUSCULAR HGB CONC 32.9 g/dL (33.0-37.0); MEAN PLATELET VOLUME 8.5 fl (7.2-11.7); NEUT # 5.7 K/uL (1.8-7.0); NEUT % 65.6 % (50.0-75.0); NRBC % 0.1 % (0.0-0.0); RBC 3.63 Mil/uL (4.40-5.90); RED CELL DISTRIBUTION WIDTH 15.2 % (11.5-14.5); WHITE BLOOD COUNT 8.7 K/uL (4.8-10.8)
[2018-10-08 06:55] LABS: ALB/GLOB RATIO 0.9 (1.0-2.1); ALBUMIN 3.1 g/dL (3.5-5.0); ALT/SGPT 27 U/L (21-72); AST/SGOT 25 U/L (17-59); BLOOD UREA NITROGEN 13 mg/dl (9-20); CALCIUM 8.8 mg/dL (8.4-10.2); GFR NON-AFRICAN AMERICAN > 60
--- NOTE | 2018-10-08 07:44 | CP.PCM.PN ---
<Tenisha Ortiz - Last Filed: 10/08/18 08:50> Subjective - Date & Time of Evaluation Date of Evaluation: 10/08/18 Time of Evaluation: 07:44 - Subjective Subjective: No acute overnight events. Pt was tachycardic, up to 130's, meds were adjusted HR this AM 80's. Pt has no new c/o this AM. Denies chest pain, abdominal pain. Tolerated PO diet yesterday. Objective - Vital Signs/Intake and Output Vital Signs (last 24 hours): Temp Pulse Resp BP Pulse Ox 97.9 F 76 20 134/80 98 10/08/18 05:00 10/08/18 05:00 10/08/18 05:00 10/08/18 05:00 10/08/18 05:00 - Medications Medications: Current Medications Acetaminophen (Tylenol 325mg Tab) 650 mg PO Q4 PRN PRN Reason: Pain, Mild (1-3) Acetaminophen (Tylenol 325mg Tab) 650 mg PO Q4 PRN PRN Reason: Temp >100 Atorvastatin Calcium (Lipitor) 20 mg PO HS [facility] Last Admin: 10/07/18 22:13 Dose: 20 mg Baclofen (Lioresal) 5 mg PO Q8 [facility] Last Admin: 10/08/18 01:57 Dose: Not Given Digoxin (Digoxin) 0.125 mg PO DAILY [facility] Last Admin: 10/06/18 08:45 Dose: Not Given Divalproex Sodium (Depakote Dr(*Bid*)) 125 mg PO Q8 [facility] Last Admin: 10/08/18 01:56 Dose: Not Given Enoxaparin Sodium (Lovenox) 40 mg SC DAILY [facility]; Protocol Last Admin: 10/07/18 09:32 Dose: 40 mg Potassium Chloride/Dextrose/Sod Cl (Potassium Chl 20 Meq In D5-1/2ns) 1,000 mls @ 90 mls/hr IV .Q11H7M [facility] Stop: 10/08/18 15:45 Last Admin: 10/07/18 00:00 Dose: 90 mls/hr Ibuprofen (Motrin Tab) 600 mg PO Q8 PRN PRN Reason: Pain, moderate (4-7) Lactulose (Enulose) 20 gm PO DAILY [facility] Last Admin: 10/07/18 17:07 Dose: 20 gm Lisinopril (Zestril) 20 mg PO DAILY [facility] Last Admin: 10/07/18 09:33 Dose: Not Given Magnesium Hydroxide (Milk Of Magnesia) 30 ml PO DAILY PRN PRN Reason: No bowel movement x 3 days Metformin HCl (Glucophage) 500 mg PO DAILYWM [facility] Last Admin: 10/07/18 09:30 Dose: Not Given Metoprolol Tartrate (Lopressor) 100 mg PO Q12 [facility] Last Admin: 10/07/18 22:13 Dose: 100 mg Naproxen (Naprosyn Tab) 250 mg PO BID [facility] Pantoprazole Sodium (Protonix Ec Tab) 40 mg PO DAILY [facility] Last Admin: 10/07/18 09:33 Dose: Not Given - Labs Labs: 10/08/18 05:35 10/08/18 05:35 PT 13.5 Seconds (9.8-13.1) H 10/07/18 04:40 INR 1.2 10/07/18 04:40 APTT 29.0 Seconds (25.6-37.1) 10/07/18 04:40 - Constitutional Appears: No Acute Distress - ENT Exam ENT Exam: Mucous Membranes Moist - Respiratory Exam Respiratory Exam: Clear to Ausculation Bilateral, NORMAL BREATHING PATTERN. absent: Wheezes - Cardiovascular Exam Cardiovascular Exam: REGULAR RHYTHM, +S1, +S2 - GI/Abdominal Exam GI & Abdominal Exam: Soft, Normal Bowel Sounds. absent: Tenderness - Extremities Exam Additional comments: lower ext contracted Assessment and Plan (1) Hematemesis Status: Acute (2) Afib Status: Suspected (3) DM type 2 (diabetes mellitus, type 2) Status: Chronic (4) HTN (hypertension) Status: Chronic (5) Anemia Status: Acute - Assessment and Plan (Free Text) Assessment: Assessment/Plan: 68 YO Male with PMHx of DM2, CVA, HTN and HLD is admitted for UGIB. ST changed on EKG -acute, likely 2/2 to arrhythmia, [place] r/o -trop x 3 neg -Echo 03/2018 appreciated, no ventricular dysfunction, EF 55-60% -echo 09/2018 global hypokinesis, poor study -cardiology consulted; pharmacological perfusion test Atrial Fib with RVR -EKG with no a fib noted -sinus tachycardia on monitor -continue Digoxin, PO metropolol as per cardio Upper GI bleed -acute, resolved -c/w protonix -GI consulted: CT abd when tolerated, stable -follow up FOBT -h/t currently stable Anemia -acute, stable -likely 2/2 to hematemesis -asymptomatic -continue to monitor for now Hypertension/HLD -chronic and stable -continue Lisinopril and Metoprolol NIDDM -chronic and controlled -hbA1c 6.4 (07/2018) -c/w Accucheks, Levemir at night and Metformin Plan as ordered <Kashmir Yates - Last Filed: 10/08/18 11:48> Objective - Vital Signs/Intake and Output Vital Signs (last 24 hours): Temp Pulse Resp BP Pulse Ox 98.0 F 83 20 126/81 99 10/08/18 08:43 10/08/18 09:39 10/08/18 08:43 10/08/18 09:39 10/08/18 08:43 - Medications Medications: Current Medications Acetaminophen (Tylenol 325mg Tab) 650 mg PO Q4 PRN PRN Reason: Pain, Mild (1-3) Acetaminophen (Tylenol 325mg Tab) 650 mg PO Q4 PRN PRN Reason: Temp >100 Atorvastatin Calcium (Lipitor) 20 mg PO HS [facility] Last Admin: 10/07/18 22:13 Dose: 20 mg Baclofen (Lioresal) 5 mg PO Q8 [facility] Last Admin: 10/08/18 09:37 Dose: 5 mg Digoxin (Digoxin) 0.125 mg PO DAILY [facility] Last Admin: 10/08/18 09:35 Dose: 0.125 mg Divalproex Sodium (Depakote Dr(*Bid*)) 125 mg PO Q8 [facility] Last Admin: 10/08/18 09:35 Dose: 125 mg Enoxaparin Sodium (Lovenox) 40 mg SC DAILY [facility]; Protocol Last Admin: 10/08/18 09:38 Dose: 40 mg Potassium Chloride/Dextrose/Sod Cl (Potassium Chl 20 Meq In D5-1/2ns) 1,000 mls @ 90 mls/hr IV .Q11H7M [facility] Stop: 10/08/18 15:45 Last Admin: 10/07/18 00:00 Dose: 90 mls/hr Ibuprofen (Motrin Tab) 600 mg PO Q8 PRN PRN Reason: Pain, moderate (4-7) Lactulose (Enulose) 20 gm PO DAILY [facility] Last Admin: 10/08/18 09:36 Dose: 20 gm Lisinopril (Zestril) 20 mg PO DAILY [facility] Last Admin: 10/08/18 09:39 Dose: 20 mg Magnesium Hydroxide (Milk Of Magnesia) 30 ml PO DAILY PRN PRN Reason: No bowel movement x 3 days Metformin HCl (Glucophage) 500 mg PO DAILYWM [facility] Last Admin: 10/08/18 09:36 Dose: 500 mg Metoprolol Tartrate (Lopressor) 100 mg PO Q12 [facility] Last Admin: 10/08/18 09:37 Dose: 100 mg Naproxen (Naprosyn Tab) 250 mg PO BID [facility] Pantoprazole Sodium (Protonix Ec Tab) 40 mg PO DAILY [facility] Last Admin: 10/08/18 09:38 Dose: 40 mg - Labs Labs: 10/08/18 05:35 10/08/18 05:35 PT 13.5 Seconds (9.8-13.1) H 10/07/18 04:40 INR 1.2 10/07/18 04:40 APTT 29.0 Seconds (25.6-37.1) 10/07/18 04:40 Assessment and Plan - Assessment and Plan (Free Text) Assessment: Patient was personally seen and examined by me in rounds with residents. Available labs and diagnostic data reviewed. Case, Patient's condition and management plan discussed with residents in rounds. Agree with resident's progress note. Plan: As ordered.
[2018-10-08 08:44] VITALS: O2SAT 99
[2018-10-08] MEDS: Digoxin 125 mcg (0.125 mg) Tab PO SCH (09:35)
[2018-10-08] MEDS: Enoxaparin 40 mg Syringe SC SCH (09:38)
[2018-10-08] MEDS: Pantoprazole 40 mg EC Tab PO SCH (09:38)
[2018-10-08 09:39] VITALS: PULSE 83
--- NOTE | 2018-10-08 11:39 | CP.PCM.DIS ---
Provider - Provider Date of Admission: 10/05/18 14:29 Attending physician: Kashmir Yates MD Consults: 10/05/18 15:01 Gastroenterology Consult Stat Comment: Consulting Provider: Ghassan Diallo Consulting Physician: Ghassan Diallo Reason for Consult: UGIB 10/06/18 08:36 Cardiology Consult Routine Comment: Consulting Provider: Abebe Madrigal Consulting Physician: Abebe Madrigal Reason for Consult: ST changed on ekg, a fib Time Spent in preparation of Discharge (in minutes): 35 Diagnosis - Discharge Diagnosis (1) Hematemesis Status: Acute (2) Afib Status: Ruled-out (3) DM type 2 (diabetes mellitus, type 2) Status: Chronic (4) HTN (hypertension) Status: Chronic (5) Anemia Status: Acute Hospital Course - Lab Results Lab Results: Most Recent Lab Values WBC 8.7 K/uL (4.8-10.8) 10/08/18 05:35 RBC 3.63 Mil/uL (4.40-5.90) L 10/08/18 05:35 Hgb 10.6 g/dL (12.0-18.0) L 10/08/18 05:35 Hct 32.2 % (35.0-51.0) L 10/08/18 05:35 MCV 88.7 fl (80.0-94.0) 10/08/18 05:35 MCH 29.2 pg (27.0-31.0) 10/08/18 05:35 MCHC 32.9 g/dL (33.0-37.0) L 10/08/18 05:35 RDW 15.2 % (11.5-14.5) H 10/08/18 05:35 Plt Count 237 K/uL (130-400) 10/08/18 05:35 MPV 8.5 fl (7.2-11.7) 10/08/18 05:35 Neut % (Auto) 65.6 % (50.0-75.0) 10/08/18 05:35 Lymph % (Auto) 21.7 % (20.0-40.0) 10/08/18 05:35 [place] % (Auto) 11.0 % (0.0-10.0) H 10/08/18 05:35 Eos % (Auto) 1.0 % (0.0-4.0) 10/08/18 05:35 Baso % (Auto) 0.7 % (0.0-2.0) 10/08/18 05:35 Neut # (Auto) 5.7 K/uL (1.8-7.0) 10/08/18 05:35 Lymph # (Auto) 1.9 K/uL (1.0-4.3) 10/08/18 05:35 [place] # (Auto) 1.0 K/uL (0.0-0.8) H 10/08/18 05:35 Eos # (Auto) 0.1 K/uL (0.0-0.7) 10/08/18 05:35 Baso # (Auto) 0.1 K/uL (0.0-0.2) 10/08/18 05:35 PT 13.5 Seconds (9.8-13.1) H 10/07/18 04:40 INR 1.2 10/07/18 04:40 APTT 29.0 Seconds (25.6-37.1) 10/07/18 04:40 Sodium 134 mmol/l (132-148) 10/08/18 05:35 Potassium 3.8 MMOL/L (3.6-5.0) 10/08/18 05:35 Chloride 102 mmol/L (98-107) 10/08/18 05:35 Carbon Dioxide 21 mmol/L (22-30) L 10/08/18 05:35 Anion Gap 15 (10-20) 10/08/18 05:35 BUN 13 mg/dl (9-20) 10/08/18 05:35 Creatinine 0.4 mg/dl (0.8-1.5) L 10/08/18 05:35 Est GFR ( Amer) > 60 10/08/18 05:35 Est GFR (Non-Af Amer) > 60 10/08/18 05:35 POC Glucose (mg/dL) 219 mg/dL (65-110) H 10/08/18 11:01 Random Glucose 209 mg/dL (75-110) H 10/08/18 05:35 Calcium 8.8 mg/dL (8.4-10.2) 10/08/18 05:35 Phosphorus 2.8 mg/dl (2.5-4.5) 10/08/18 05:35 Magnesium 1.5 MG/DL (1.6-2.3) L 10/08/18 05:35 Total Bilirubin 0.3 mg/dl (0.2-1.3) 10/08/18 05:35 AST 25 U/L (17-59) 10/08/18 05:35 ALT 27 U/L (21-72) 10/08/18 05:35 Alkaline Phosphatase 69 U/L (38-126) 10/08/18 05:35 Troponin I 0.0420 ng/mL (0.00-0.120) 10/06/18 20:49 Total Protein 6.8 G/DL (6.3-8.2) 10/08/18 05:35 Albumin 3.1 g/dL (3.5-5.0) L 10/08/18 05:35 Globulin 3.6 gm/dL (2.2-3.9) 10/08/18 05:35 Albumin/Globulin Ratio 0.9 (1.0-2.1) L 10/08/18 05:35 Blood Type O POSITIVE 10/05/18 13:00 Antibody Screen Negative 10/05/18 13:00 BBK History Checked Patient has bt 10/05/18 13:00 - Hospital Course Hospital Course: 68 YO Male with PMHx of DM2, CVA, HTN and HLD is admitted for UGIB. GI was consulted, hb remains stable and no acute GI bleed while in hospital. Pt cleared by GI. Additionally, patient had tachycarida with HR up to the 130's. Cardiology was consulted, trops neg, nonspecific ST changes noted on EKG, trops x 3 neg, medications were adjusted. Pt at this time is cleared for discharge by GI and cardiology. Pt is d[place]c [facility] [place] [facility], pt to follow up with PMD in 1 week. Discharge Exam - Head Exam Head Exam: ATRAUMATIC, NORMOCEPHALIC - Eye Exam Eye Exam: Normal appearance - Respiratory Exam Respiratory Exam: Clear to PA & Lateral, NORMAL BREATHING PATTERN. absent: Wheezes - Cardiovascular Exam Cardiovascular Exam: REGULAR RHYTHM, +S1, +S2 - GI/Abdominal Exam GI & Abdominal Exam: Normal Bowel Sounds, Soft. absent: Distended, Guarding, Tenderness - Extremities Exam Additional comments: lower ext contracted - Neurological Exam Neurological exam: Alert Discharge Plan - Follow Up Plan Condition: GOOD Disposition: HOME/ ROUTINE Patient education suggested?: Yes Instructions: Ambulatory Cardiac Monitoring (DC), Gastrointestinal Bleeding (DC) Additional Instructions: Please follow up with PMD and Release Manager in 1 week. Referrals: Kashmir Yates MD [Staff Provider] - Abebe Madrigal MD [Staff Provider] -
[2018-10-08 15:46] VITALS: BP 157/74; PULSE 69; RESP 20; TEMP 97.7
== END 2018-10-08 16:00 | DRG 253 ==
LOC: H.ER 10:47 → H.ERHOLD 14:29 → H.TEL 20:50
PROVIDERS: ADMIT Internal Medicine; ATTEND Internal Medicine
DX: K92.0 Hematemesis (principal); D62 Acute posthemorrhagic anemia; E11.9 Type 2 diabetes mellitus without complications; D72.828 Other elevated white blood cell count; R94.31 Abnormal electrocardiogram [ECG] [EKG]; I10 Essential (primary) hypertension; K21.9 Gastro-esophageal reflux disease without esophagitis; E78.5 Hyperlipidemia, unspecified; E78.00 Pure hypercholesterolemia, unspecified; Z86.73 Personal history of transient ischemic attack (TIA), and cerebral infarction without residual deficits; Z79.84 Long term (current) use of oral hypoglycemic drugs; Z87.01 Personal history of pneumonia (recurrent)